=== PATIENT | male | born 1990 ===

== ENCOUNTER 2021-08-30 18:35 | Emergency (ER) | payer SELFPAY ==
--- NOTE | 2021-08-30 20:03 | XRay Report ---
RIGHT SHOULDER 3 VIEW(S) INDICATION / CLINICAL INFORMATION: possible dislocation. COMPARISON: None available. FINDINGS: BONES / JOINT(S): Anterior dislocation of the right glenohumeral joint. No significant arthritis. SOFT TISSUES: No significant abnormality. ADDITIONAL FINDINGS: None. IMPRESSION: 1. Anterior dislocation of the right glenohumeral joint. Signer Name: Damion Carrasco II, MD Signed: 08/30/2021 7:58 PM Workstation Name: [id number]
[2021-08-30] MEDS ORDERED: LIDOCAINE (1%) 10 MG/1 ML VIAL 20 ML MDV INFILTRATI ONE (21:30)
[2021-08-30 21:39] VITALS: BP 141/79
--- NOTE | 2021-08-30 22:35 | Emergency Department Report ---
Upper Extremity - HPI Chief Complaint: Extremity Injury, Upper Stated Complaint: RT SHOULDER INJURY Time Seen by Provider: 08/30/21 21:23 Upper Extremity: Right Shoulder Occurred When: Today Mechanism: Other (lifting arm overhead) Severity: severe Symptoms: Yes Pain with Movement, Yes Deformity, Yes Limited Range of Movement, No Numbness, No Weakness, No Swelling, No Bruising/Ecchymosis, No Laceration or Abrasion Other History: Chief complaint: Shoulder injury. HPI: This is a healthy 30-year-old male with history of previous shoulder dislocation presents with right shoulder pain. Severe 10 out of 10 pain. Pain occurred spontaneously while lifting his arm overhead while working. Several years ago he injured his right shoulder with dislocation during a soccer match. He fell on outstretched arm. Has not had dislocation since that time. No other injuries. He has intact strength without numbness in the extremity. He last ate food 1:30 PM for lunch. He recently drank a bottle Coca-Cola. ED Review of Systems ROS: Stated complaint: RT SHOULDER INJURY Other details as noted in HPI Comment: All other systems reviewed and negative Constitutional: denies: chills, fever, malaise Respiratory: denies: cough, shortness of breath Cardiovascular: denies: chest pain ED Past Medical Hx - Past Medical History Previous Medical History?: No - Surgical History Past Surgical History?: No - Social History Smoking Status: Never Smoker Substance Use Type: Alcohol Upper Extremity Exam - Exam General: Vital signs noted. No distress. Alert and acting appropriately. Head and Torso: No HEENT Abnormality, No Neck Tenderness, No Chest/Lungs Abnormality, No Abdominal Tenderness, No Back Tenderness Shoulder Exam: Yes Shoulder Tenderness, Yes Shoulder Deformity (Squared off right shoulder), No Clavicle Tenderness, No Normal Range of Motion in Shoulder (Squared off), No AC Joint Tenderness Arm Exam: No Arm/Humerus Tenderness, No Arm Deformity Elbow: Yes Normal Range of Motion in Elbow, No Elbow Tenderness, No Elbow Deformity Forearm: No Forearm Tenderness, No Forearm Deformity, No Pain with Pronation, No Pain with Supination Wrist: Yes Normal ROM in Wrist, No Wrist Tenderness, No Wrist Deformity, No Snuffbox Tenderness, No Pain with Axial Thumb Compression Hand: Yes Normal ROM in Digit(s), No Hand Tenderness, No Hand Deformity, No Digit Tenderness, No Digit(s) Deformity, No Tendon Dysfunction CMS Exam: Yes Normal Distal Pulses, Yes Normal Capillary Refill, Yes Normal Distal Sensation, No Broken Skin ED Course Vital Signs 08/30/21 08/30/21 19:19 21:30 Temperature 98.0 F Pulse Rate 83 67 Respiratory 18 14 Rate Blood Pressure 132/81 Blood Pressure 141/79 [Left] O2 Sat by Pulse 100 99 Oximetry - Joint Aspiration/Injection Consent Obtained: verbal consent Time Out Performed: Yes Indications: to relieve pressure/pain Side of Body: right Joint Aspirated: shoulder Ultrasound Guidance: Yes Skin Prep: other (Betadine) Local Anesthesia Used: Lidocaine 1% Amount of Anesthesia Used (mls): 20 Needle Size Used: Other (21-gauge) Syringe Size Used: 20cc Medication Injected, if any: Lidocaine Amount of Medication Injected (mls): 20 Patient Tolerated Procedure: well, no complications Complications: none Additional Comments: After joint injection: Median ulnar radial nerves intact, 2+ radial pulse - Orthopedic Joint Reduction Joint #1 Consent Obtained: verbal consent Time Out Performed: Yes Side: right Joint Reduction Location: shoulder Analgesia: other (Joint injection) Local Anesthetic Used: Lidocaine 1% Amount of Anesthetic Used (mls): 20 Shoulder Technique Used (if applicable): traction/counter-traction Technique Used: traction/counter-traction Post-Reduction Neuro Exam: intact Post-Reduction Vascular Exam: intact Post Reduction X-Ray Obtained: Yes Post Reduction X-Ray Results: reduced Splint Applied: No (Shoulder immobilizer) Patient Tolerated Procedure: well ED Medical Decision Making - Radiology Data Radiology results: report reviewed, image reviewed Patient Name: NIMSEH CARLSON Gender: Male Date of : 1990 Referring Provider: DOC, ED Organization: [facility] Accession Number: [id number] Requested Date: August 30, 2021 19:21 Report Status: Final Requested Procedure: 1 Procedure Description: XR shoulder 2+V RT Modality: XR Findings Reporting MD: Damion Carrasco Dictation Time: August 30, 2021 18:58 Web Publisher: Not available Maintenance Fitter Date: RIGHT SHOULDER 3 VIEW(S) INDICATION / CLINICAL INFORMATION: possible dislocation. COMPARISON: None available. FINDINGS: BONES / JOINT(S): Anterior dislocation of the right glenohumeral joint. No significant arthritis. SOFT TISSUES: No significant abnormality. ADDITIONAL FINDINGS: None. IMPRESSION: 1. Anterior dislocation of the right glenohumeral joint. Signer Name: Damion Carrasco II, MD Signed: 08/30/2021 6:58 PM Workstation Name: [id number] Personal interpretation of postreduction radiographs right shoulder AP and Y views obtained: Reduction of previous anterior dislocation successful Patient Name: NIMESH CARLSON Gender: Male Date of : 1990 Referring Provider: BON VASQUEZ Organization: [facility] Accession Number: [id number] Requested Date: August 30, 2021 22:29 Report Status: Final Requested Procedure: 1 Procedure Description: XR shoulder 2+V RT Modality: XR Findings Reporting MD: Moris Biswas Dictation Time: August 30, 2021 21:50 Web Publisher: Not available Maintenance Fitter Date: Right shoulder, 2 views HISTORY: Shoulder reduction COMPARISON: Same day radiograph FINDINGS: Satisfactory reduction of right glenohumeral joint dislocation. The joint is in anatomic alignment. No fracture identified. Signer Name: Moris Biswas MD Signed: 08/30/2021 9:50 PM Workstation Name: [id number] - Medical Decision Making Anterior right shoulder dislocation neurovascular intact before and after reduction. Treated with intra-articular injection of lidocaine. Discharged home. Referred to orthopedic surgeon. Shoulder immobilizer was applied to the affected extremity under my supervision. After application the extremity was neurovascularly intact with acceptable alignment. Critical care attestation.: If time is entered above; I have spent that time in minutes in the direct care of this critically ill patient, excluding procedure time. ED Disposition Clinical Impression: Anterior dislocation of right shoulder Disposition: 01 HOME / SELF CARE / HOMELESS Is pt being admited?: No Does the pt Need Aspirin: No Condition: Stable Instructions: Shoulder Dislocation, [id number] Referrals: DELONTE CROW MD [Staff Physician] - as needed
--- NOTE | 2021-08-30 22:54 | XRay Report ---
Right shoulder, 2 views HISTORY: Shoulder reduction COMPARISON: Same day radiograph FINDINGS: Satisfactory reduction of right glenohumeral joint dislocation. The joint is in anatomic al ignment. No fracture identified. Signer Name: Moris Biswas MD Signed: 08/30/2021 10:50 PM Workstation Name: [id number]
== END 2021-08-30 23:01 | disposition home or self-care (01) ==
LOC: ED 18:35
DX: S43.084A Other dislocation of right shoulder joint, initial encounter (principal); X58.XXXA Exposure to other specified factors, initial encounter; Y93.89 Activity, other specified; Y92.89 Other specified places as the place of occurrence of the external cause; Y99.8 Other external cause status
CPT/HCPCS: 23650; 73030; 99283; J3490